=== PATIENT | female | born 1950 | race Caucasian/White ===

== ENCOUNTER 2025-05-09 00:54 | Emergency (ER) | payer OTHER ==
[2025-05-09 01:09] VITALS: BP 146/81; PULSE 99; RESP 12; TEMP 98; BMI 23.6
[2025-05-09 02:34] LABS: ABSOLUTE IMMATURE GRANULOCYTES 0.05 x10^3/uL (0.0-0.031); BASOPHILS # 0.05 x10^3/uL (0.01-0.08); EOSINOPHIL % 0.3 % (0.7-5.8); EOSINOPHILS # 0.04 x10^3/uL (0.04-0.36); MCHC 33.2 g/dl (32.2-35.5); MEAN CELL VOLUME 90.2 fl (79.4-94.8); MEAN PLT VOLUME 11.0 fl (9.4-12.3); MONOCYTE # 0.64 x10^3/uL (0.24-0.86); MONOCYTE % 5.4 % (4.7-12.5); RDW 14.1 % (12.4-16.6)
[2025-05-09 02:46] LABS: CO2 27.0 mmol/L (21-32); GLUCOSE,RANDOM 113.0 mg/dL (74-106)
[2025-05-09 02:49] LABS: CREATININE 0.7 mg/dL (0.55-1.3); SGPT/ALT 28.0 U/L (13-61)
[2025-05-09 02:50] LABS: SGOT/AST 34.0 U/L (15-37)
[2025-05-09 02:51] LABS: TOT PROT 8.0 g/dl (6.4-8.2)
[2025-05-09 02:52] LABS: ALK PHOS 91.0 U/L (45-117)
[2025-05-09 03:38] LABS: HCV DIAGNOSTIC IN-HOUSE W/RFLX NON-REACTIVE (NONREACTIVE); HIV INTERPRETATION NEGATIVE (NEGATIVE)
== END 2025-05-09 04:35 | disposition home or self-care (01) ==
LOC: JER 00:54
DX: I10 Essential (primary) hypertension (principal)
CPT/HCPCS: 36415; 71045-TC-FY; 80053; 83735; 84484; 85025; 86803; 87389; 93005; 93010; 99285-25